=== PATIENT | male | born 1955 | race African-American/Black ===

== ENCOUNTER 2017-03-04 20:04 | Emergency (ER) | payer OTHER ==
--- NOTE | 2017-03-04 20:59 | ED Physician Documentation ---
Upper Respiratory Symptoms - HISTORIAN Historian: patient - HPI Chief Complaint: Cough/ Upper Respiratory Additional Information: RECURRENT NON PROD COUGH Onset: days ago (3) Duration: intermittent episodes Severity: mild, moderate Associated Symptoms: sore throat. denies: fever, chills, sweating, earache, runny nose, sinus pain, sinus drainage, productive cough - ROS CONST/EYES: eye itching. denies: weakness, eye redness CVS/RESP: denies: chest pain, shortness of breath, palpitations LYMPH: denies: leg swelling GI/: none - PAST HX Lung Disease: none Other History: hypertension, other (A FIB) Surgeries/Procedures: other (PACEMAKER APPY VAS) Allergies/Adverse Reactions: Allergies Allergy/AdvReac Type Severity Reaction Status Date / Time No Known Allergies Allergy Verified 03/04/17 20:46 Home Medications: Ambulatory Orders Medication Instructions Recorded Lisinopril [Prinivil] 40 mg PO DAILY 04/05/14 Furosemide [Lasix] 40 mg PO D 03/04/17 Rivaroxaban [Xarelto] 20 mg PO D 03/04/17 Sotalol HCl [Betapace] 120 mg PO BID 03/04/17 amLODIPine BESYLATE [Norvasc] 10 mg PO D 03/04/17 - SOCIAL HX Smoking History: non-smoker Alcohol Use: none Drug Use: none - FAMILY HX Family History: no significant history - VITAL SIGNS Vital Signs: Vital Signs Temp Pulse Resp BP Pulse Ox 180/92 04/05/14 14:16 - REVIEWED ASSESSMENTS Nursing Assessment Reviewed: Yes Vitals Reviewed: Yes Upper Respiratory Symptoms - EXAM General Appearance: mild distress EENT: eyes nml inspection Neck: normal inspection Respiratory: no resp. distress, breath sounds nml Abdomen: non-tender. No: tenderness CVS: reg rate & rhythm, heart sounds normal Skin: color nml, no rash, warm,dry. No: cyanosis, diaphoresis, pallor Extremities: non-tender, normal range of motion Neuro/Psych: oriented x3, mood/affect nml Discharge Clincal Impression: VIRAL RESP INF Referrals: Primary Doctor,No [Primary Care Provider] - 2 Days Comments: REC FLU VACC Condition: Good Disposition: 01 HOME, SELF-CARE Decision to Admit: NO Decision Time: 21:02
[2017-03-04 21:22] VITALS: BP 131/74
== END 2017-03-04 21:00 | disposition home or self-care (01) ==
LOC: ED 20:04
DX: J00 Acute nasopharyngitis [common cold] (principal)
CPT/HCPCS: 99283